=== PATIENT | female | born 1980 | race African-American/Black ===

== ENCOUNTER 2020-10-13 16:34 | Emergency (ER) | payer MEDICAID, OTHER ==
[~2020-10-13] VITALS: Ht 165.1 cm; Wt 75.0 kg
[2020-10-13 16:51] VITALS: BP 122/76
== END 2020-10-13 21:37 | disposition home or self-care (01) ==
LOC: ER 16:34
DX: R42 Dizziness and giddiness (principal); Z98.890 Other specified postprocedural states
CPT/HCPCS: 81025; 99283

== ENCOUNTER 2023-12-02 09:17 | Emergency (ER) | payer MEDICAID, OTHER ==
[~2023-12-02] VITALS: Ht 162.6 cm; Wt 75.0 kg
[2023-12-02 09:30] VITALS: O2SAT 100
[2023-12-02] MEDS ORDERED: D-ME473S50 ORI (11:06)
[2023-12-02 11:20] VITALS: BP 118/83; PULSE 81; RESP 18; TEMP 98.3
== END 2023-12-02 11:27 | disposition home or self-care (01) ==
LOC: ER 09:17
DX: J06.9 Acute upper respiratory infection, unspecified (principal); Z20.822 Contact with and (suspected) exposure to COVID-19; Z98.890 Other specified postprocedural states
CPT/HCPCS: 71045; 87426; 99284